=== PATIENT | female | born 1985 | race Caucasian/White ===

== ENCOUNTER 2018-08-13 11:22 | Emergency (ER) | payer OTHER, SELFPAY ==
[2018-08-13 11:40] VITALS: BP 108/74; PULSE 69; RESP 17; TEMP 37; O2SAT 100
--- NOTE | 2018-08-13 14:04 | ED.BACK ---
HPI - Back Pain/Injury <THIERRY Mccurdy - Last Filed: 08/13/18 16:10> General Chief Complaint: Back Pain/Injury Stated Complaint: BACK PAIN 2 WEEKS Time Seen by Provider: 08/13/18 14:04 Source: patient Mode of arrival: ambulatory Limitations: no limitations History of Present Illness HPI Narrative: c/o pain in her tailbone area, and denies any injury/trauma MD Complaint: back pain Onset (ago): week(s) (2) Duration: constant Similar Symptoms Previously: No Location: sacrum Severity: moderate Quality: sharp Radiation: none Relieving factors: none Exacerbating factors: movement Context: unknown Associated symptoms: denies other symptoms Related Data Home Medications Medication Instructions Recorded Confirmed Fish Oil 1 cap PO DAILY 08/13/18 08/13/18 Probiotic 1 cap PO DAILY 08/13/18 08/13/18 wt-mg-frnz-FA-Ca carb-vit K 1 tab PO DAILY 08/13/18 08/13/18 [One-A-Day Womens Formula] Previous Rx's Medication Instructions Recorded tramadol [Ultram] 50 mg PO Q6H PRN #20 tab 08/13/18 Allergies Allergy/AdvReac Type Severity Reaction Status Date / Time No Known Drug Allergies Allergy Verified 08/13/18 11:40 Review of Systems <THIERRY Mccurdy - Last Filed: 08/13/18 16:10> Review of Systems All systems reviewed & are unremarkable except as noted in HPI and below Constitutional Denies chills, Denies fever(s), Denies lethargy and Denies weakness ENT Ears, Nose, Mouth, and Throat: Denies neck pain Cardiovascular Denies chest pain, Denies irregular heart rhythm, Denies lightheadedness, Denies palpitations, Denies dyspnea, Denies dyspnea on exertion and Denies orthopnea Respiratory Denies cough, Denies dyspnea, Denies dyspnea on exertion and Denies wheezing Gastrointestinal Gastrointestinal: Denies abdominal pain, Denies change in bowel habits, Denies diarrhea, Denies nausea and Denies vomiting Genitourinary Denies hematuria, Denies flank pain, Denies urinary incontinence and Denies urinary urgency Musculoskeletal Reports as per HPI, Denies abnormal gait, Reports back pain, Denies limited range of motion, Denies muscle cramps, Denies muscle weakness, Denies neck pain, Denies numbness, Denies radiating pain into limb and Denies tingling Neurologic Denies abnormal gait, Denies numbness, Denies tingling and Denies weakness Endocrine Denies palpitations Allergic/Immunologic Denies wheezing Exam <Alexa THIERRY Mansfield - Last Filed: 08/13/18 16:10> Initial Vital Signs Initial Vital Signs: Vital Signs Temperature 98.6 F 08/13/18 11:40 Pulse Rate 69 08/13/18 11:40 Respiratory Rate 17 08/13/18 11:40 Blood Pressure 108/74 08/13/18 11:40 Pulse Oximetry 100 08/13/18 11:40 Const General: cooperative, healthy appearing, comfortable, well developed and well groomed Nutritional Appearance: average body habitus Orientation: alert, awake and oriented x3 HENMT Head: normal to inspection and normocephalic Ears: hearing grossly normal bilaterally, external ears normal, TM's normal bilaterally and mastoids normal Nose: external nose normal and nares normal Face and sinus: normal facial exam, sinuses nontender and face symmetric Mouth: oral mucosae normal, lip normal, tongue normal, oropharynx normal and moist mucous membranes Teeth and gingiva: dentition normal and gingiva normal Throat: posterior oropharynx normal, tonsils normal and uvula midline Eyes General: appearance normal, both eyes and all related structures Visual Spencer: normal visual spencer by confrontation Eyelids: eyelids normal Conjunctivae: conjunctivae normal Sclera: sclerae normal Pupils: PERRL EOM: EOM intact bilaterally Neck Neck: normal visual inspection, full ROM, no meningeal signs, trachea midline, supple and No lymphadenopathy Chest Chest: normal inspection of the chest Resp Effort & Inspection: normal respiratory effort and able to speak in complete sentences Auscultation: clear to auscultation bilaterally Cardio Rate: regular rate Rhythm: regular rhythm Heart Sounds: S1 normal and S2 normal Back/Spine/Pelvis Back: normal to inspection, No back tenderness, No CVA tenderness and No sacral edema Cervical Spine: cervical ROM normal and No pain with cervical ROM Thoracic/Lumbar Spine: thoraco-lumbar ROM normal and No thoraco-lumbar ROM limited Sacroiliac Joints: nontender Sacrum: no swelling and no tenderness Coccyx: no swelling and no tenderness Skin General: no rashes or lesions noted, elasticity normal, turgor normal and dry skin Neuro General: alert, awake, oriented x3 and meningeal signs present Cognition: normal cognition Speech: speech normal Gait: normal gait Motor: muscle tone normal throughout Sensory Exam: no sensory deficits noted Extrem General: normal to inspection and full ROM Psych Appearance: grossly normal and well kempt Mental Status: mental status grossly normal Speech and Movement: speech and movement normal Mood: congruent mood Affect: normal affect Attitude: cooperative Thought Process: normal Thought Content: normal Judgment: judgment good <Salena Nicolas DO - Last Filed: 08/14/18 20:44> Initial Vital Signs Initial Vital Signs: Vital Signs Temperature 98.6 F 08/13/18 11:40 Pulse Rate 69 08/13/18 11:40 Respiratory Rate 17 08/13/18 11:40 Blood Pressure 108/74 08/13/18 11:40 Pulse Oximetry 100 08/13/18 11:40 Course <THIERRY Mccurdy - Last Filed: 08/13/18 16:10> Course Narrative: results and dc discussed Orders Ordered: Discontinued Medications Ketorolac Tromethamine (Toradol) 60 mg IM NOW ONE Stop: 08/13/18 14:13 Last Admin: 08/13/18 14:27 Dose: 60 mg Vital Signs - 8 hr 08/13/18 11:40 08/13/18 14:18 08/13/18 15:38 Temperature 98.6 F Pulse Rate 69 74 81 Respiratory Rate 17 16 12 Blood Pressure 108/74 Blood Pressure [Right Arm] 112/63 114/72 Pulse Oximetry 100 97 100 <Salena Nicolas DO - Last Filed: 08/14/18 20:44> Orders Ordered: Discontinued Medications Ketorolac Tromethamine (Toradol) 60 mg IM NOW ONE Stop: 08/13/18 14:13 Last Admin: 08/13/18 14:27 Dose: 60 mg Vital Signs - 8 hr 08/13/18 11:40 08/13/18 14:18 08/13/18 15:38 Temperature 98.6 F Pulse Rate 69 74 81 Respiratory Rate 17 16 12 Blood Pressure 108/74 Blood Pressure [Right Arm] 112/63 114/72 Pulse Oximetry 100 97 100 MDM - Back Pain/Injury <THIERRY Mccurdy - Last Filed: 08/13/18 16:10> Differential Diagnosis Differential diagnosis: Likely lumbar radiculopathy, sciatica, strain of lumbar region, renal colic, pyelonephritis and discitis Lab Data Point of Care Testing Test Results Negative Urine Dip Bedside Urine Glucose Negative Bedside Urine Bilirubin - Negative Bedside Urine Ketone - Negative Urine Specific [place] 1.020 Bedside Urine Occult Blood - Negative Bedside Urine pH 6.0 Bedside Urine Protein - Negative Bedside Urine Urobilinogen - Negative Bedside Urine Nitrite - Negative Bedside Urine Leukocytes - Negative Esterase Imaging Data xr sacrum: Radiologist's impression: [address] [address] XRay Report Signed Patient: JIHAN PHELPS MMR#: [id number] : 1985Acct:[id number] Age/Sex: 33 / FDate of Service: 08/13/18 Loc: ED Accession Number: [id number] Procedure: XR sacrum coccyx min 2V Ordering Provider: Alexa Mansfield PROCEDURE: XR SACRUM COCCYX MIN 2V INDICATIONS: pain TECHNIQUE: 3 views of the sacrum and coccyx acquired. COMPARISON: None. FINDINGS: Bones: No fractures or dislocations. No suspicious bony lesions. Soft tissues: Visualized bowel gas pattern is normal. No suspicious soft tissue densities. IMPRESSION: No gross acute sacral or coccygeal fracture. Dictated by: Suraj Nunez M.D. on 08/13/2018 at 14:38 Approved by: Suraj Nunez M.D. on 08/13/2018 at 14:38 <Salena Nicolas DO - Last Filed: 08/14/18 20:44> Lab Data Point of Care Testing Test Results Negative Urine Dip Bedside Urine Glucose Negative Bedside Urine Bilirubin - Negative Bedside Urine Ketone - Negative Urine Specific [place] 1.020 Bedside Urine Occult Blood - Negative Bedside Urine pH 6.0 Bedside Urine Protein - Negative Bedside Urine Urobilinogen - Negative Bedside Urine Nitrite - Negative Bedside Urine Leukocytes - Negative Esterase Discharge Plan Departure Patient Disposition: Home Clinical Impression: Sacral back pain Discharge Date/Time: 08/13/18 15:49 Interventions: ED Discharge Assessment Last Done: 08/13/18 15:49 Instructions: DI for Low Back Pain Prescriptions: New tramadol [Ultram] 50 mg tablet 50 mg PO Q6H PRN (Reason: pain) Qty: 20 RF: 0 No Action kk-dm-uyrk-FA-Ca carb-vit K [One-A-Day Womens Formula] 18 mg iron-400 mcg-500 mg Tablet 1 tab PO DAILY RF: 0 Fish Oil 1 cap PO DAILY RF: 0 Probiotic 1 cap PO DAILY RF: 0 Referrals: Bety Robledo [Primary Care Provider] - (in approx 5 days as needed) <Salena Nicolas DO - Last Filed: 08/14/18 20:44> Cosign ED Attending Cosignature Attestation: I was immediately available in the department for consultation. This documentation has been reviewed and I agree with assessment and plan. Supervised by Salena Nicolas DO
--- NOTE | 2018-08-13 14:12 | DI.RAD.S_ITS ---
PROCEDURE: XR SACRUM COCCYX MIN 2V INDICATIONS: pain TECHNIQUE: 3 views of the sacrum and coccyx acquired. COMPARISON: None. FINDINGS: Bones: No fractures or dislocations. No suspicious bony lesions. Soft tissues: Visualized bowel gas pattern is normal. No suspicious soft tissue densities. IMPRESSION: No gross acute sacral or coccygeal fracture. Dictated by: Suraj Nunez M.D. on 08/13/2018 at 14:38 Approved by: Suraj Nunez M.D. on 08/13/2018 at 14:38
[2018-08-13 14:18] VITALS: BP 112/63; PULSE 74; RESP 16; O2SAT 97
[2018-08-13] MEDS: KETOROLAC 60 MG/2 ML VIAL IM (14:27)
--- NOTE | 2018-08-13 15:25 | ED_ITS ---
HPI - Back Pain/Injury <THIERRY Mccurdy - Last Filed: 08/13/18 16:10> General Chief Complaint: Back Pain/Injury Stated Complaint: BACK PAIN 2 WEEKS Time Seen by Provider: 08/13/18 14:04 Source: patient Mode of arrival: ambulatory Limitations: no limitations History of Present Illness HPI Narrative: c/o pain in her tailbone area, and denies any injury/trauma MD Complaint: back pain Onset (ago): week(s) (2) Duration: constant Similar Symptoms Previously: No Location: sacrum Severity: moderate Quality: sharp Radiation: none Relieving factors: none Exacerbating factors: movement Context: unknown Associated symptoms: denies other symptoms Related Data Home Medications Medication Instructions Recorded Confirmed Fish Oil 1 cap PO DAILY 08/13/18 08/13/18 Probiotic 1 cap PO DAILY 08/13/18 08/13/18 er-tk-isih-FA-Ca carb-vit K 1 tab PO DAILY 08/13/18 08/13/18 [One-A-Day Womens Formula] Previous Rx's Medication Instructions Recorded tramadol [Ultram] 50 mg PO Q6H PRN #20 tab 08/13/18 Allergies Allergy/AdvReac Type Severity Reaction Status Date / Time No Known Drug Allergies Allergy Verified 08/13/18 11:40 Review of Systems <THIERRY Mccurdy - Last Filed: 08/13/18 16:10> Review of Systems All systems reviewed & are unremarkable except as noted in HPI and below Constitutional Denies chills, Denies fever(s), Denies lethargy and Denies weakness ENT Ears, Nose, Mouth, and Throat: Denies neck pain Cardiovascular Denies chest pain, Denies irregular heart rhythm, Denies lightheadedness, Denies palpitations, Denies dyspnea, Denies dyspnea on exertion and Denies orthopnea Respiratory Denies cough, Denies dyspnea, Denies dyspnea on exertion and Denies wheezing Gastrointestinal Gastrointestinal: Denies abdominal pain, Denies change in bowel habits, Denies diarrhea, Denies nausea and Denies vomiting Genitourinary Denies hematuria, Denies flank pain, Denies urinary incontinence and Denies urinary urgency Musculoskeletal Reports as per HPI, Denies abnormal gait, Reports back pain, Denies limited range of motion, Denies muscle cramps, Denies muscle weakness, Denies neck pain , Denies numbness, Denies radiating pain into limb and Denies tingling Neurologic Denies abnormal gait, Denies numbness, Denies tingling and Denies weakness Endocrine Denies palpitations Allergic/Immunologic Denies wheezing Exam <Alexa THIERRY Mansfield - Last Filed: 08/13/18 16:10> Initial Vital Signs Initial Vital Signs: Vital Signs Temperature 98.6 F 08/13/18 11:40 Pulse Rate 69 08/13/18 11:40 Respiratory Rate 17 08/13/18 11:40 Blood Pressure 108/74 08/13/18 11:40 Pulse Oximetry 100 08/13/18 11:40 Const General: cooperative, healthy appearing, comfortable, well developed and well groomed Nutritional Appearance: average body habitus Orientation: alert, awake and oriented x3 HENMT Head: normal to inspection and normocephalic Ears: hearing grossly normal bilaterally, external ears normal, TM's normal bilaterally and mastoids normal Nose: external nose normal and nares normal Face and sinus: normal facial exam, sinuses nontender and face symmetric Mouth: oral mucosae normal, lip normal, tongue normal, oropharynx normal and moist mucous membranes Teeth and gingiva: dentition normal and gingiva normal Throat: posterior oropharynx normal, tonsils normal and uvula midline Eyes General: appearance normal, both eyes and all related structures Visual Spencer: normal visual spencer by confrontation Eyelids: eyelids normal Conjunctivae: conjunctivae normal Sclera: sclerae normal Pupils: PERRL EOM: EOM intact bilaterally Neck Neck: normal visual inspection, full ROM, no meningeal signs, trachea midline, supple and No lymphadenopathy Chest Chest: normal inspection of the chest Resp Effort & Inspection: normal respiratory effort and able to speak in complete sentences Auscultation: clear to auscultation bilaterally Cardio Rate: regular rate Rhythm: regular rhythm Heart Sounds: S1 normal and S2 normal Back/Spine/Pelvis Back: normal to inspection, No back tenderness, No CVA tenderness and No sacral edema Cervical Spine: cervical ROM normal and No pain with cervical ROM Thoracic/Lumbar Spine: thoraco-lumbar ROM normal and No thoraco-lumbar ROM limited Sacroiliac Joints: nontender Sacrum: no swelling and no tenderness Coccyx: no swelling and no tenderness Skin General: no rashes or lesions noted, elasticity normal, turgor normal and dry skin Neuro General: alert, awake, oriented x3 and meningeal signs present Cognition: normal cognition Speech: speech normal Gait: normal gait Motor: muscle tone normal throughout Sensory Exam: no sensory deficits noted Extrem General: normal to inspection and full ROM Psych Appearance: grossly normal and well kempt Mental Status: mental status grossly normal Speech and Movement: speech and movement normal Mood: congruent mood Affect: normal affect Attitude: cooperative Thought Process: normal Thought Content: normal Judgment: judgment good <Salena Nicolas DO - Last Filed: 08/14/18 20:44> Initial Vital Signs Initial Vital Signs: Vital Signs Temperature 98.6 F 08/13/18 11:40 Pulse Rate 69 08/13/18 11:40 Respiratory Rate 17 08/13/18 11:40 Blood Pressure 108/74 08/13/18 11:40 Pulse Oximetry 100 08/13/18 11:40 Course <THIERRY Mccurdy - Last Filed: 08/13/18 16:10> Course Narrative: results and dc discussed Orders Ordered: Discontinued Medications Ketorolac Tromethamine (Toradol) 60 mg IM NOW ONE Stop: 08/13/18 14:13 Last Admin: 08/13/18 14:27 Dose: 60 mg Vital Signs - 8 hr 08/13/18 11:40 08/13/18 14:18 08/13/18 15:38 Temperature 98.6 F Pulse Rate 69 74 81 Respiratory Rate 17 16 12 Blood Pressure 108/74 Blood Pressure [Right Arm] 112/63 114/72 Pulse Oximetry 100 97 100 <Salena Nicolas DO - Last Filed: 08/14/18 20:44> Orders Ordered: Discontinued Medications Ketorolac Tromethamine (Toradol) 60 mg IM NOW ONE Stop: 08/13/18 14:13 Last Admin: 08/13/18 14:27 Dose: 60 mg Vital Signs - 8 hr 08/13/18 11:40 08/13/18 14:18 08/13/18 15:38 Temperature 98.6 F Pulse Rate 69 74 81 Respiratory Rate 17 16 12 Blood Pressure 108/74 Blood Pressure [Right Arm] 112/63 114/72 Pulse Oximetry 100 97 100 MDM - Back Pain/Injury <THEIRRY Mccurdy - Last Filed: 08/13/18 16:10> Differential Diagnosis Differential diagnosis: Likely lumbar radiculopathy, sciatica, strain of lumbar region, renal colic, pyelonephritis and discitis Lab Data Point of Care Testing Test Results Negative Urine Dip Bedside Urine Glucose Negative Bedside Urine Bilirubin - Negative Bedside Urine Ketone - Negative Urine Specific [place] 1.020 Bedside Urine Occult Blood - Negative Bedside Urine pH 6.0 Bedside Urine Protein - Negative Bedside Urine Urobilinogen - Negative Bedside Urine Nitrite - Negative Bedside Urine Leukocytes - Negative Esterase Imaging Data xr sacrum: Radiologist's impression: [address] [address] XRay Report Signed Patient: JIHAN PHELPS MMR#: [id number] : 1985Acct:[id number] Age/Sex: 33 / FDate of Service: 08/13/18 Loc: ED Accession Number: [id number] Procedure: XR sacrum coccyx min 2V Ordering Provider: Alexa Mansfield PROCEDURE: XR SACRUM COCCYX MIN 2V INDICATIONS: pain TECHNIQUE: 3 views of the sacrum and coccyx acquired. COMPARISON: None. FINDINGS: Bones: No fractures or dislocations. No suspicious bony lesions. Soft tissues: Visualized bowel gas pattern is normal. No suspicious soft tissue densities. IMPRESSION: No gross acute sacral or coccygeal fracture. Dictated by: Suraj Nunez M.D. on 08/13/2018 at 14:38 Approved by: Suraj Nunez M.D. on 08/13/2018 at 14:38 <Salena Nicolas DO - Last Filed: 08/14/18 20:44> Lab Data Point of Care Testing Test Results Negative Urine Dip Bedside Urine Glucose Negative Bedside Urine Bilirubin - Negative Bedside Urine Ketone - Negative Urine Specific [place] 1.020 Bedside Urine Occult Blood - Negative Bedside Urine pH 6.0 Bedside Urine Protein - Negative Bedside Urine Urobilinogen - Negative Bedside Urine Nitrite - Negative Bedside Urine Leukocytes - Negative Esterase Discharge Plan Departure Patient Disposition: Home Clinical Impression: Sacral back pain Discharge Date/Time: 08/13/18 15:49 Interventions: ED Discharge Assessment Last Done: 08/13/18 15:49 Instructions: DI for Low Back Pain Prescriptions: New tramadol [Ultram] 50 mg tablet 50 mg PO Q6H PRN (Reason: pain) Qty: 20 RF: 0 No Action lv-um-iinl-FA-Ca carb-vit K [One-A-Day Womens Formula] 18 mg iron-400 mcg-500 mg Tablet 1 tab PO DAILY RF: 0 Fish Oil 1 cap PO DAILY RF: 0 Probiotic 1 cap PO DAILY RF: 0 Referrals: Bety Robledo [Primary Care Provider] - (in approx 5 days as needed) <Salena Nicolas DO - Last Filed: 08/14/18 20:44> Cosign ED Attending Cosignature Attestation: I was immediately available in the department for consultation. This documentation has been reviewed and I agree with assessment and plan. Supervised by Salena Nicolas DO
[2018-08-13 15:38] VITALS: BP 114/72; PULSE 81; RESP 12; O2SAT 100
== END 2018-08-13 15:49 | disposition home or self-care (01) ==
PROVIDERS: Emergency Provider Nurse Practitioner; PCP Nurse Practitioner
DX: M53.3 Sacrococcygeal disorders, not elsewhere classified (principal)
CPT/HCPCS: 72220; 81003; 81025; 96372; 99282; 99284; J1885

== ENCOUNTER 2018-09-27 16:12 | Emergency (ER) | payer OTHER, SELFPAY ==
[2018-09-27 16:15] VITALS: BP 118/80; PULSE 85; RESP 18; TEMP 36.6; O2SAT 100; BMI 28.3
--- NOTE | 2018-09-27 17:00 | ED.FEMALEGU ---
HPI - Female Genitourinary General Chief complaint: Urogenital-Female Stated complaint: thinks she has a UTI Time Seen by Provider: 09/27/18 16:58 Source: patient Mode of arrival: ambulatory Limitations: no limitations History of Present Illness HPI Narrative: 33-year-old female comes to the ER with frequency dysuria and urgency. Fevers, no abdominal or flank pain. Patient has had UTIs in the past she denies any resistance. Patient has not had any other symptoms currently. She has taken some azo [id number]. Related Data Home Medications Medication Instructions Recorded Confirmed Fish Oil 1 cap PO DAILY 08/13/18 09/27/18 Probiotic 1 cap PO DAILY 08/13/18 08/13/18 mb-oe-mets-FA-Ca carb-vit K 1 tab PO DAILY 08/13/18 09/27/18 [One-A-Day Womens Formula] Previous Rx's Medication Instructions Recorded tramadol [Ultram] 50 mg PO Q6H PRN #20 tab 08/13/18 nitrofurantoin monohyd/m-cryst 100 mg PO Q12H #6 cap 09/27/18 [Macrobid] Allergies Allergy/AdvReac Type Severity Reaction Status Date / Time No Known Drug Allergies Allergy Verified 09/27/18 16:18 Review of Systems Review of Systems All systems reviewed & are unremarkable except as noted in HPI and below Constitutional Denies chills and Denies fever(s) Gastrointestinal Gastrointestinal: Denies abdominal pain, Denies change in bowel habits, Denies diarrhea, Reports nausea (very mild) and Denies vomiting Genitourinary Reports as per HPI, Denies hematuria, Reports urinary frequency, Reports dysuria, Denies flank pain, Denies urinary incontinence and Reports urinary urgency [facility] Social History Smoking Status: Never smoker Exam Narrative Exam Narrative: GENERAL: Alert and oriented x three, well-nourished, well-appearing female in no mild distress. HEENT: Head normocephalic, atraumatic, EOMI, pupils reactive, face symmetric, moist mucous membranes NECK: Supple, full range of motion CARDIOVASCULAR: Regular rate and rhythm without murmurs, rubs or gallops. RESPIRATORY: Breath sounds equal bilaterally, no wheezes rales or rhonchi. ABDOMEN: Soft, nontender. Normoactive bowel sounds all 4 quadrants. No guarding or rebound, rigidity, no mass : No CVA tenderness EXTREMITIES: Normal range of motion, no clubbing or edema. Neurovascularly intact NEUROLOGICAL: Cranial nerves II through XII grossly intact. Moving all extremities SKIN: Warm, dry, no petechiae, no rashes or lesions. Initial Vital Signs Initial Vital Signs: Vital Signs Temperature 97.9 F 09/27/18 16:15 Pulse Rate 85 09/27/18 16:15 Respiratory Rate 18 09/27/18 16:15 Blood Pressure 118/80 09/27/18 16:15 Pulse Oximetry 100 09/27/18 16:15 Course Orders Ordered: ED Orders 09/27/18 16:52 Urine Culture Stat Urine Microscopic Stat Vital Signs - 8 hr 09/27/18 16:15 09/27/18 17:31 Temperature 97.9 F Pulse Rate 85 82 Respiratory Rate 18 18 Blood Pressure 118/80 Pulse Oximetry 100 100 MDM - Female Genitourinary Lab Data Attestation: I reviewed the patient's lab results. Lab Results 09/27/18 Range/Units 16:52 Urine RBC 5-10/hpf H (0-5/HPF) Urine WBC 10-30/hpf H (0-5/HPF) Ur Squamous Epith Cells 0-1 /hpf Urine Bacteria Occasional (0-1) (None) Ur Culture Indicated? Specimen cultured Micro UA Comment Not Reportable Point of Care Testing Test Results Negative Urine Dip Bedside Urine Glucose Negative Bedside Urine Bilirubin - Negative Bedside Urine Ketone - Negative Urine Specific [place] 1.010 Bedside Urine Occult Blood + Bedside Urine pH 8.5 Bedside Urine Protein + 30 Bedside Urine Urobilinogen - Negative Bedside Urine Nitrite - Negative Bedside Urine Leukocytes ++ 125 Esterase Discharge Plan Departure Patient Disposition: Home Clinical Impression: UTI (urinary tract infection) Discharge Date/Time: 09/27/18 17:32 Interventions: ED Discharge Assessment Last Done: 09/27/18 17:31 Instructions: DI for Urinary Tract Infection (UTI) Activity Restrictions/Additional Instructions: Follow-up with her primary care physician in the next 5-7 days if symptoms are not completely resolved. Take antibiotics until they are completely gone. Take azo or pyridium you may take 200 mg every 8 hr as needed for bladder spasm/irritation. Return appearing having fevers greater than 100.4, new back, flank or abdominal pain, persistent vomiting, worsening symptoms or other new or concerning symptoms. Prescriptions: New nitrofurantoin monohyd/m-cryst [Macrobid] 100 mg capsule 100 mg PO Q12H Qty: 6 RF: 0 No Action bs-bk-jraj-FA-Ca carb-vit K [One-A-Day Womens Formula] 18 mg iron-400 mcg-500 mg Tablet 1 tab PO DAILY RF: 0 Fish Oil 1 cap PO DAILY RF: 0 Probiotic 1 cap PO DAILY RF: 0 tramadol [Ultram] 50 mg tablet 50 mg PO Q6H PRN (Reason: pain) Qty: 20 RF: 0
[2018-09-27 17:09] LABS: Bacteria Urine Occasional (0-1); Culture Indicated Urine Specimen Cultured; RBC Urine 5-10/HPF (0-5/HPF); Squamous Epithelial Cell Urine 0-1 /HPF; WBC Urine 10-30/HPF (0-5/HPF)
[2018-09-27 17:31] VITALS: PULSE 82; RESP 18; O2SAT 100
== END 2018-09-27 17:32 | disposition home or self-care (01) ==
PROVIDERS: Nurse Practitioner Family; Emergency Provider Emergency Medicine; PCP Nurse Practitioner
DX: N39.0 Urinary tract infection, site not specified (principal)
CPT/HCPCS: 81003; 81015; 81025; 87077; 87086; 87186; 99283

== ENCOUNTER 2018-11-30 20:38 | Emergency (ER) | payer OTHER, SELFPAY ==
[2018-11-30 20:44] VITALS: BP 112/66; PULSE 96; RESP 20; TEMP 37; O2SAT 100; BMI 29.2
--- NOTE | 2018-11-30 21:11 | DI.US.S_ITS ---
PROCEDURE: US OB <= 14 WEEKS FETUS INDICATIONS: AT 8 WEEKS, PAIN AND BLEEDING OUTSIDE/PRIOR DATING DATA: Last menstrual period (LMP): 09/30/18. LMP-based estimated date of delivery (JONATAN): 07/07/19. First dating scan (date and location): 11/30/18. Estimated date of delivery (JONATAN) from first dating scan: n/a . TECHNIQUE: Real-time scanning was performed of the fetus and maternal pelvic organs, with image documentation. Endovaginal scanning was also performed to better visualize the fetus and maternal ovaries. COMPARISON: None. FINDINGS: There is no visualization of intrauterine gestational sac, pole or heart tones. There is significant echogenic appearance within the endometrium and endocervical canal. Ovaries demonstrate 17 mm focus of hypoechogenicity adjacent to the left ovary. Trace left adnexal fluid is present.. Limited images through the kidneys demonstrate no hydronephrosis. IMPRESSION: 1. No visualized intrauterine gestational sac, pole or heart tones. Areas of increased echogenicity are present within the endometrium and endocervical canal. Findings are suggestive of previous . Recommend interval followup imaging and review of beta hCG levels to exclude presence of underlying ectopic and retained products of conception. Dictated by: Cathryn Hua M.D. on 12/01/2018 at 9:18 Approved by: Cathryn Hua M.D. on 12/01/2018 at 9:22
--- NOTE | 2018-11-30 21:18 | PC.NURSE ---
Pt just ambulated to bathroom. Reports passing something about golf ball size in bathroom. Ended up flushing toilet with no further visualization. Pt report's pain has decreased to minimal at this time.
[2018-11-30 21:45] LABS: Add Manual Diff / Slide Review NO; Basophils Absolute Auto 0 /uL (0-100); Basophils Percent Auto 0.6 % (0-2); Eosinophils Absolute Auto 200 /uL (0-450); Eosinophils Percent Auto 2.8 % (2-4); Hematocrit 39.4 % (36-46); Hemoglobin 13.1 g/dL (12.0-16.0); Lymphocytes Absolute Auto 2000 /uL (1100-4500); Lymphocytes Percent Auto 26.6 % (25-40); Mean Corpuscular HGB Conc 33.3 % (30-36); Mean Corpuscular Hemoglobin 29.6 PG (26-34); Mean Corpuscular Volume 88.9 fL (80-100); Monocytes Absolute Auto 600 /uL (0-900); Monocytes Percent Auto 8.5 % (3-14); Neutrophils Absolute Auto 4600 /uL (1500-7000); Neutrophils Percent Auto 61.5 % (50-75); Platelet Count 217 X10^3/uL (150-400); Red Blood Cell Count 4.43 X10^6/uL (4.0-5.2); Red Cell Distribution Width 12.6 % (11.6-14.8); White Blood Cell Count 7.5 X10^3/uL (4.5-11.0)
[2018-11-30 21:57] LABS: Alanine Aminotransferase 42 IU/L (9-52); Albumin 4.5 g/dL (3.5-5.0); Albumin Globulin Ratio 1.6 (1.0-2.8); Alkaline Phosphatase 65 U/L (38-126); Aspartate Aminotransferase 26 IU/L (14-36); Bilirubin Total 0.3 mg/dL (0.2-1.3); Blood Urea Nitrogen 15 mg/dL (7-17); Calcium 9.1 mg/dL (8.4-10.2); Carbon Dioxide 24 mmol/L (22-32); Chloride 103 mmol/L (98-107); Estimated Glomerular Filt Rate > 60.0 mL/min (>60); Globulin 2.9 g/dL (1.7-4.1); Glucose 92 mg/dL (70-100); HEMOLYSIS 18 (0-50); Potassium 3.9 mmol/L (3.4-5.1); Sodium 137 mmol/L (137-145); Total Protein 7.4 g/dL (6.3-8.2)
[2018-11-30 21:59] LABS: Bacteria Urine None Seen
[2018-11-30 22:04] LABS: Appearance Urine UA TURBID; Bilirubin Urine UA NEGATIVE (NEGATIVE); Color Urine UA RED; Glucose Urine UA NEGATIVE (Negative); Ketones Urine UA TRACE (NEGATIVE); Leukocyte Esterase Urine UA NEGATIVE (NEGATIVE); Nitrite Urine UA NEGATIVE (Negative); Occult Blood Urine UA 3+ (Negative); Protein Urine UA 3+ (Negative); Specific Gravity Urine UA >=1.030 (1.000-1.035); Urobilinogen Urine UA 0.2 E.U./dL (0.2)
[2018-11-30 22:06] LABS: Calcium Oxalate Crystals Urine Occasional; Culture Indicated Urine Cult Not Indicated; RBC Urine >100/HPF (0-5/HPF); Squamous Epithelial Cell Urine 0-1 /HPF; WBC Urine 0-1/HPF (0-5/HPF)
[2018-11-30 22:37] VITALS: BP 111/66; PULSE 74; RESP 12; O2SAT 100
--- NOTE | 2018-12-01 05:06 | ED.PREGNANCY ---
HPI - General Chief complaint: Vaginal Bleeding Stated complaint: spotting Time Seen by Provider: 11/30/18 21:09 Source: patient Mode of arrival: ambulatory Limitations: no limitations History of Present Illness HPI Narrative: 33-year-old female nonsmoker otherwise healthy at 8 weeks. She has had some mild vaginal spotting for the past 4 weeks or so and her primary care office has been following her with serial HCGs. Today her bleeding became much more intense and heavy and she presents to us for further evaluation. She had an episode of dizziness but it is not ongoing. She denies chest pain or shortness of breath. She denies fever or chills. She has had no dysuria, frequency or urgency. She has yet to have an ultrasound confirming intrauterine MD Complaint: vaginal bleeding Onset (ago): minute(s) Pain Consistency: now resolved Location: pelvis Severity: mild Quality: Aching Relieving factors: none Exacerbating factors: none Vaginal discharge: none Vaginal bleeding: heavy Patient : Yes Number of Weeks : 8 OB History - Current : no complications OB History - Previous Pregnancies: no complications care: followed by OB Related Data : 1 Para: 0 Total number of abortions (spontaneous and elective): 0 Home Medications Medication Instructions Recorded Confirmed Fish Oil 1 cap PO DAILY 08/13/18 09/27/18 Probiotic 1 cap PO DAILY 08/13/18 08/13/18 ij-[id number]-FA-Ca carb-vit K 1 tab PO DAILY 08/13/18 09/27/18 [One-A-Day Womens Formula] Previous Rx's Medication Instructions Recorded tramadol [Ultram] 50 mg PO Q6H PRN #20 tab 08/13/18 nitrofurantoin monohyd/m-cryst 100 mg PO Q12H #6 cap 09/27/18 [Macrobid] Allergies Allergy/AdvReac Type Severity Reaction Status Date / Time No Known Drug Allergies Allergy Verified 11/30/18 20:44 Review of Systems Constitutional Denies chills, Denies fever(s), Denies lethargy and Reports weakness Eyes Denies change in vision, Denies eye discharge, Denies irritation and Denies loss of vision ENT Ears, Nose, Mouth, and Throat: Denies change in voice, Denies neck pain and Denies sore throat Cardiovascular Denies chest pain, Denies irregular heart rhythm, Denies lightheadedness, Denies palpitations, Denies dyspnea, Denies dyspnea on exertion and Denies orthopnea Respiratory Denies cough, Denies dyspnea, Denies dyspnea on exertion and Denies wheezing Gastrointestinal Gastrointestinal: Denies abdominal pain, Denies change in bowel habits, Denies diarrhea, Denies nausea and Denies vomiting Genitourinary Reports abnormal vaginal bleeding, Denies hematuria, Denies flank pain, Denies urinary incontinence and Denies urinary urgency Musculoskeletal Denies neck pain Integumentary/Breasts Denies pruritus, Denies erythema, Denies rash and Denies wounds Neurologic Denies confusion, Denies loss of vision and Reports weakness Psychiatric Denies anxiety, Denies confusion, Denies depression, Denies homicidal ideation and Denies suicidal ideation Endocrine Denies palpitations Hematologic/Lymphatic Denies easy bruising Allergic/Immunologic Denies wheezing PMFSH - Past Medical History Medical history: Reports no medical history Surgical history: Reports no surgical history SECURITY SUPPORT ANALYST history: Reports No SECURITY SUPPORT ANALYST History Patient : Yes Psychiatric history: Reports no psych history Family history: Reports no significant family history Exam Narrative Exam Narrative: GENERAL: This is a well-nourished, well-developed patient, in mild distress. HEAD: Atraumatic. Normocephalic. No temporal or scalp tenderness. EYES: Pupils equal round and reactive. Extraocular motions intact. No scleral icterus. No injection or drainage. ENT: Nose without bleeding, purulent drainage or septal hematoma. Throat without erythema, tonsillar hypertrophy or exudate. Uvula midline. Airway patent. NECK: Trachea midline. No JVD or lymphadenopathy. Supple, nontender, no meningeal signs. CARDIOVASCULAR: Regular rate and rhythm without murmurs, gallops, or rubs. RESPIRATORY: Clear to auscultation. Breath sounds equal bilaterally. No wheezes, rales, or rhonchi. GASTROINTESTINAL: Abdomen soft, mild suprapubic tenderness, nondistended. No hepato-splenomegaly, or palpable masses. No guarding. EXTREMITIES: No clubbing, cyanosis, or edema. No joint tenderness, effusion, or edema noted. BACK: Nontender without deformity or crepitance. No flank tenderness. NEURO: AOx3. SKIN: No rash or erythema. Initial Vital Signs Initial Vital Signs: Vital Signs Temperature 98.6 F 11/30/18 20:44 Pulse Rate 96 H 11/30/18 20:44 Respiratory Rate 20 11/30/18 20:44 Blood Pressure 112/66 11/30/18 20:44 Pulse Oximetry 100 11/30/18 20:44 Procedures Number of Weeks : 8 Course Orders Ordered: ED Orders 11/30/18 21:11 US OB <= 14 weeks fetus Stat 11/30/18 21:35 ABO RH Type Stat Complete Blood Count AUTO DIFF Stat Comprehensive Metabolic Panel Stat HCG Quantitative Stat 11/30/18 21:45 Urinalysis and Microscopic Stat Consultations Consultation #1: Discussion of case with on-call Ob whom recommends close follow-up on Sunday for repeat HCG and return precautions to include bleeding through more than 1 pad per hour for multiple hours or other bothersome symptoms Vital Signs - 8 hr 11/30/18 22:37 Pulse Rate 74 Respiratory Rate 12 Blood Pressure [Left Arm] 111/66 Pulse Oximetry 100 MDM - OB/Uterine Contractions Medical Records Attestation: I reviewed the patient's medical records. Lab Data Attestation: I reviewed the patient's lab results. Result diagrams: 11/30/18 21:35 11/30/18 21:35 Lab Results 11/30/18 11/30/18 11/30/18 Range/Units 21:35 21:35 21:35 WBC 7.5 (4.5-11.0) X10^3/uL RBC 4.43 (4.0-5.2) X10^6/uL Hgb 13.1 (12.0-16.0) g/dL Hct 39.4 (36-46) % MCV 88.9 (80-100) fL MCH 29.6 (26-34) PG MCHC 33.3 (30-36) % RDW 12.6 (11.6-14.8) % Plt Count 217 (150-400) X10^3/uL Neut % (Auto) 61.5 (50-75) % Lymph % (Auto) 26.6 (25-40) % Riley % (Auto) 8.5 (3-14) % Eos % (Auto) 2.8 (2-4) % Baso % (Auto) 0.6 (0-2) % Neut # (Auto) 4600 (5804-3438) /uL Lymph # (Auto) 2000 (9090-8932) /uL Riley # (Auto) 600 (0-900) /uL Eos # (Auto) 200 (0-450) /uL Baso # (Auto) 0 (0-100) /uL Sodium 137 (137-145) mmol/L Potassium 3.9 (3.4-5.1) mmol/L Chloride 103 (98-107) mmol/L Carbon Dioxide 24 (22-32) mmol/L BUN 15 (7-17) mg/dL Creatinine 0.60 (0.52-1.04) mg/dL Estimated GFR > 60.0 (>60) mL/min BUN/Creatinine Ratio 25.0 H (6-22) Glucose 92 (70-100) mg/dL Calcium 9.1 (8.4-10.2) mg/dL Total Bilirubin 0.3 (0.2-1.3) mg/dL AST 26 (14-36) IU/L ALT 42 (9-52) IU/L Alkaline Phosphatase 65 (38-126) U/L Total Protein 7.4 (6.3-8.2) g/dL Albumin 4.5 (3.5-5.0) g/dL Globulin 2.9 (1.7-4.1) g/dL Albumin/Globulin Ratio 1.6 (1.0-2.8) HCG, Quant mIU/mL Serum , Qual Cancelled Urine Color Urine Appearance Urine pH (4.5-8.0) Ur Specific Center (1.000-1.035) Urine Protein (Negative) Urine Glucose (UA) (Negative) g/dL Urine Ketones (NEGATIVE) Urine Occult Blood (Negative) Urine Nitrate (Negative) Urine Bilirubin (NEGATIVE) Urine Urobilinogen (0.2) E.U./dL Ur Leukocyte Esterase (NEGATIVE) Urine RBC (0-5/HPF) Urine WBC (0-5/HPF) Ur Squamous Epith Cells Calcium Oxalate Crystal (None) Urine Bacteria (None) Ur Culture Indicated? Blood Type 11/30/18 11/30/18 11/30/18 Range/Units 21:35 21:35 21:45 WBC (4.5-11.0) X10^3/uL RBC (4.0-5.2) X10^6/uL Hgb (12.0-16.0) g/dL Hct (36-46) % MCV (80-100) fL MCH (26-34) PG MCHC (30-36) % RDW (11.6-14.8) % Plt Count (150-400) X10^3/uL Neut % (Auto) (50-75) % Lymph % (Auto) (25-40) % Riley % (Auto) (3-14) % Eos % (Auto) (2-4) % Baso % (Auto) (0-2) % Neut # (Auto) (0474-3913) /uL Lymph # (Auto) (5804-2495) /uL Riley # (Auto) (0-900) /uL Eos # (Auto) (0-450) /uL Baso # (Auto) (0-100) /uL Sodium (137-145) mmol/L Potassium (3.4-5.1) mmol/L Chloride (98-107) mmol/L Carbon Dioxide (22-32) mmol/L BUN (7-17) mg/dL Creatinine (0.52-1.04) mg/dL Estimated GFR (>60) mL/min BUN/Creatinine Ratio (6-22) Glucose (70-100) mg/dL Calcium (8.4-10.2) mg/dL Total Bilirubin (0.2-1.3) mg/dL AST (14-36) IU/L ALT (9-52) IU/L Alkaline Phosphatase (38-126) U/L Total Protein (6.3-8.2) g/dL Albumin (3.5-5.0) g/dL Globulin (1.7-4.1) g/dL Albumin/Globulin Ratio (1.0-2.8) HCG, Quant 2597.0 mIU/mL Serum , Qual Urine Color Red Urine Appearance Turbid Urine pH 6.0 (4.5-8.0) Ur Specific Center >=1.030 H (1.000-1.035) Urine Protein 3+ H (Negative) Urine Glucose (UA) Negative (Negative) g/dL Urine Ketones Trace H (NEGATIVE) Urine Occult Blood 3+ H (Negative) Urine Nitrate Negative (Negative) Urine Bilirubin Negative (NEGATIVE) Urine Urobilinogen 0.2 (0.2) E.U./dL Ur Leukocyte Esterase Negative (NEGATIVE) Urine RBC >100/hpf H (0-5/HPF) Urine WBC 0-1/hpf (0-5/HPF) Ur Squamous Epith Cells 0-1 /hpf Calcium Oxalate Crystal Occasional H (None) Urine Bacteria None seen (None) Ur Culture Indicated? Cult not indicated Blood Type O Positive Point of Care Testing Test Results Positive MDM Narrative Medical decision making narrative: Patient has serum HCG over 1999 and has had increasing vaginal bleeding over the course of the day. She passed a large clot and questions whether not there was some tissue in the bathroom earlier but flushed it before recognizing we may be interested in seeing. Her ultrasound shows no intrauterine and though the suspicion is of missed we still cannot rule out ectopic hence the recommendation to repeat HCG to document its decline Patient and have had their questions answered to their apparent satisfaction and have understanding of return precautions and the ability to verbalize that understanding. Discharge Plan Departure Patient Disposition: Home Clinical Impression: Vaginal bleeding, Incomplete Discharge Date/Time: 11/30/18 23:09 Interventions: ED Discharge Assessment Last Done: 11/30/18 23:07 Instructions: DI for Miscarriage, DI for Vaginal Bleeding Activity Restrictions/Additional Instructions: *You have been diagnosed with [incomplete miscarriage ] *What to do: *Follow up with your primary care provider in 2-3 days, call for an appointment. Let them know you were seen in the Emergency Department and that we ask that you be seen in follow up *Return to ER if you should have any new, worsening or concerning symptoms, such as [ worsening bleeding, through 1 pad per hour or more more than 1 hr, fever, shaking chills or other bothersome symptoms] Prescriptions: No Action by-ew-afhl-FA-Ca carb-vit K [One-A-Day Womens Formula] 18 mg iron-400 mcg-500 mg Tablet 1 tab PO DAILY RF: 0 Fish Oil 1 cap PO DAILY RF: 0 Probiotic 1 cap PO DAILY RF: 0 tramadol [Ultram] 50 mg tablet 50 mg PO Q6H PRN (Reason: pain) Qty: 20 RF: 0 nitrofurantoin monohyd/m-cryst [Macrobid] 100 mg capsule 100 mg PO Q12H Qty: 6 RF: 0 Referrals: Bety Robledo [Primary Care Provider] -
== END 2018-11-30 23:09 | disposition home or self-care (01) ==
PROVIDERS: Emergency Provider Emergency Medicine; PCP Nurse Practitioner
DX: O03.4 Incomplete spontaneous abortion without complication (principal)
CPT/HCPCS: 36591; 76801; 80053; 81001; 81025; 84702; 85025; 86900; 86901; 99282; 99284

== ENCOUNTER 2022-12-15 18:21 | Emergency (ER) | payer OTHER, SELFPAY ==
[2022-12-15 19:03] VITALS: BP 136/78; PULSE 76; RESP 17; TEMP 37; O2SAT 100; BMI 29.2
--- NOTE | 2022-12-15 19:07 | DI.RAD.S_ITS ---
PROCEDURE: XR CHEST 1V INDICATIONS: chest pain TECHNIQUE: One view of the chest was acquired. COMPARISON: None. FINDINGS: Surgical changes and devices: None. Lungs and pleura: Lungs are clear. No pleural effusions or pneumothorax. Mediastinum: Mediastinal contours appear normal. Heart size is normal. Bones and chest wall: No suspicious bony lesions. Overlying soft tissues appear unremarkable. IMPRESSION: No evidence acute pulmonary process. Dictated by: Chris Rodriguez M.D. on 12/15/2022 at 19:37 Approved by: Chris Rodriguez M.D. on 12/15/2022 at 19:37
--- NOTE | 2022-12-15 19:08 | DI.US.S_ITS ---
PROCEDURE: US PERIPH VENOUS LOW EXTREM RT INDICATIONS: leg pain TECHNIQUE: Real-time imaging, as well as color and pulse Doppler interrogation, were performed of the lower extremity deep veins from the inguinal ligament to the popliteal fossa. COMPARISON: None. FINDINGS: The common femoral, femoral and popliteal veins are normally compressible, and free of intraluminal thrombus. Color and pulse Doppler demonstrate normal phasic intraluminal flow. There is normal augmentation response to distal compression maneuver. IMPRESSION: Negative right lower extremity duplex venous ultrasound for DVT. Dictated by: Chris Rodriguez M.D. on 12/15/2022 at 19:58 Approved by: Chris Rodriguez M.D. on 12/15/2022 at 19:59
[2022-12-15 19:28] LABS: Alanine Aminotransferase 34 IU/L (<35); Albumin 4.8 g/dL (3.5-5.0); Albumin Globulin Ratio 1.5 (1.0-2.8); Alkaline Phosphatase 70 U/L (38-126); Aspartate Aminotransferase 25 IU/L (14-36); Bilirubin Total 0.4 mg/dL (0.2-1.3); Blood Urea Nitrogen 12 mg/dL (7-17); Calcium 9.4 mg/dL (8.4-10.2); Carbon Dioxide 27 mmol/L (22-32); Chloride 104 mmol/L (98-107); Creatine Kinase 66 U/L (30-135); Estimated Glomerular Filt Rate > 60 mL/min (>60); Globulin 3.3 g/dL (1.7-4.1); Glucose 99 mg/dL (70-100); Lipase 54 U/L (23-300); Magnesium 2.2 mg/dL (1.6-2.3); Potassium 3.8 mmol/L (3.4-5.1); Sodium 141 mmol/L (137-145); Total Protein 8.1 g/dL (6.3-8.2)
[2022-12-15 19:33] LABS: D Dimer < 215 ng/ml (<500); PTT Partial Thromboplastin Tim 36 SECONDS (26-36)
[2022-12-15 19:34] LABS: HEMOLYSIS < 15 (0-50)
[2022-12-15 19:36] LABS: Add Manual Diff / Slide Review NO; Basophils Absolute Auto 0 /uL (0-100); Basophils Percent Auto 0.5 % (0-2); Eosinophils Absolute Auto 200 /uL (0-450); Eosinophils Percent Auto 3.2 % (2-4); Hematocrit 41.2 % (36-46); Hemoglobin 13.8 g/dL (12.0-16.0); Lymphocytes Absolute Auto 1300 /uL (1100-4500); Lymphocytes Percent Auto 21.7 % (25-40); Mean Corpuscular HGB Conc 33.6 % (30-36); Mean Corpuscular Hemoglobin 29.4 PG (26-34); Mean Corpuscular Volume 87.6 fL (80-100); Monocytes Absolute Auto 500 /uL (0-900); Monocytes Percent Auto 8.1 % (3-14); Neutrophils Absolute Auto 4100 /uL (1500-7000); Neutrophils Percent Auto 66.5 % (50-75); Platelet Count 208 X10^3/uL (150-400); Red Cell Distribution Width 13.1 % (11.6-14.8); White Blood Cell Count 6.2 X10^3/uL (4.5-11.0)
[2022-12-15 19:41] LABS: Troponin I < 0.012 ng/mL (0.01-0.034)
[2022-12-15 20:57] LABS: Creatine Kinase 64 U/L (30-135)
[2022-12-15 21:08] LABS: Troponin I < 0.012 ng/mL (0.01-0.034)
--- NOTE | 2022-12-15 21:58 | ED_ITS ---
HPI - Chest Pain General Chief Complaint: Chest Pain Stated Complaint: CHEST PAINS SOB legs ache jolty pains Time Seen by Provider: 12/15/22 19:14 Source: patient Mode of arrival: Ambulatory History of Present Illness HPI narrative: 37F nonsmoker presents with various symptoms over the past few days. Most notably is pain in her right calf that has been present for the past few days. She states that she just got back from the beach in [place] and noticed the pain while walking. She does not remember any specific injury but states she was quite active. She denies any thigh or hip pain. She denies numbness, tingling or weakness. Additionally, she has had episodes of symptoms that come together in clusters that start with palpitations and a racing heart along with shortness of breath some lightheadedness and blurring of vision. These episodes are unprovoked and relatively brief in nature. She denies any new medications or d ietary change. She is not having symptoms now. She is had no fever or chills. She denies nausea, vomiting or diarrhea. Denies any history of blood clot, known cancer Related Data Allergies Allergy/AdvReac Type Severity Reaction Status Date / Time lidocaine AdvReac Unconscious Verified 12/15/22 19:06 Review of Systems Review of Systems Narrative: GENERAL: Denies chills, fatigue, malaise, fever, sweats. HEENT: Denies sinus pain, ear pain, sore throat, difficulty swallowing, dizziness. RESPIRATORY: See HPI CARDIOVASCULAR: see HPI GASTROINTESTINAL: Denies nausea, vomiting, abdominal pain, diarrhea, constipation, melena. : Denies dysuria, frequency, incontinence, hematuria, urinary retention. MUSCULOSKELETAL: denies weakness, joint pain, or bony pain SKIN: Denies rash, skin lesions, or other NEUROLOGIC: Denies weakness, headache, numbness, change in speech, confusion, seizures, incoordination. PSYCHIATRIC: No concerning psychosocial issues. 12 point review of systems is negative except for those stated above Patient History Social History Smoking Status: Never smoker Smoking Status: Never smoker alcohol intake frequency: a few times a week Substance Use Type: does not use Exam Narrative Exam Narrative: GENERAL: [37] year old patient appears stated age. Well-developed patient, in mild distress. HEAD: Atraumatic. Normocephalic. EYES: Pupils equal round and reactive. Extraocular motions intact. No scleral icterus. No injection or drainage. ENT: Nose without bleeding, purulent drainage. Throat without erythema, tonsillar hypertrophy or exudate. Airway patent. NECK: Trachea midline. Non tender CARDIOVASCULAR: Regular rate and rhythm without murmurs, gallops, or rubs. RESPIRATORY: Clear to auscultation. Breath sounds equal bilaterally. No wheezes, rales, or rhonchi. GASTROINTESTINAL: Abdomen soft, non-tender, nondistended. EXTREMITIES: No edema or joint tenderness. Muscle wasting in right calf is chronic per patient, no swelling, erythema, warmth or lymphangitis noted BACK: Nontender without deformity or crepitance. No flank tenderness. NEURO: AOx3. SKIN: No rash or erythema of visible areas Initial Vital Signs Initial Vital Signs: Vital Signs Temperature 98.6 F 12/15/22 19:03 Pulse Rate 76 12/15/22 19:03 Respiratory Rate 17 12/15/22 19:03 Blood Pressure 136/78 12/15/22 19:03 Pulse Oximetry 100 12/15/22 19:03 Oxygen Delivery Method Room Air 12/15/22 19:03 Course Orders Ordered: ED Orders 12/15/22 19:07 XR chest 1V Stat EKG-12 Lead Stat 12/15/22 19:08 US periph venous low extrem rt Stat 12/15/22 19:09 Complete Blood Count AUTO DIFF Stat Comprehensive Metabolic Panel Stat DD [D Dimer] Stat Lipase Stat Magnesium Stat PTT Partial Thromboplastin Juan Alberto Stat Prothrombin Time INR Stat Troponin & CK Cardiac Panel Stat 12/15/22 20:25 cardiac panel [Troponin & CK Cardiac Panel] Stat Vital Signs Vital signs: Vital Signs - 8 hr 12/15/22 19:03 12/15/22 22:21 Temperature 98.6 F Pulse Rate 76 72 Respiratory Rate 17 18 Blood Pressure 136/78 115/61 Pulse Oximetry 100 98 Oxygen Delivery Method Room Air Room Air MDM - Chest Pain Lab Data 12/15/22 19:09 12/15/22 19:09 Labs: Lab Results 12/15/22 12/15/22 12/15/22 Range/Units 19:09 19:09 19:09 WBC 6.2 (4.5-11.0) X10^3/uL RBC 4.70 (4.0-5.2) X10^6/uL Hgb 13.8 (12.0-16.0) g/dL Hct 41.2 (36-46) % MCV 87.6 (80-100) fL MCH 29.4 (26-34) PG MCHC 33.6 (30-36) % RDW 13.1 (11.6-14.8) % Plt Count 208 (150-400) X10^3/uL Neut % (Auto) 66.5 (50-75) % Lymph % (Auto) 21.7 L (25-40) % Dubois % (Auto) 8.1 (3-14) % Eos % (Auto) 3.2 (2-4) % Baso % (Auto) 0.5 (0-2) % Neut # (Auto) 4100 (9904-7178) /uL Lymph # (Auto) 1300 (1547-5322) /uL Dubois # (Auto) 500 (0-900) /uL Eos # (Auto) 200 (0-450) /uL Baso # (Auto) 0 (0-100) /uL PT 12.0 (10.1-12.7) SECONDS INR 1.0 (0.9-1.3) APTT 36 (26-36) SECONDS D-Dimer < 215 (<500) ng/ml Sodium 141 (137-145) mmol/L Potassium 3.8 (3.4-5.1) mmol/L Chloride 104 (98-107) mmol/L Carbon Dioxide 27 (22-32) mmol/L BUN 12 (7-17) mg/dL Creatinine 0.63 (0.52-1.04) mg/dL Estimated GFR > 60 (>60) mL/min BUN/Creatinine Ratio 19.0 (6-22) Glucose 99 (70-100) mg/dL Calcium 9.4 (8.4-10.2) mg/dL Magnesium 2.2 (1.6-2.3) mg/dL Total Bilirubin 0.4 (0.2-1.3) mg/dL AST 25 (14-36) IU/L ALT 34 (<35) IU/L Alkaline Phosphatase 70 (38-126) U/L Total Creatine Kinase 66 (30-135) U/L CK-MB (CK-2) TNP CK-MB (CK-2) Rel Index TNP Troponin I < 0.012 (0.01-0.034) ng/mL Total Protein 8.1 (6.3-8.2) g/dL Albumin 4.8 (3.5-5.0) g/dL Globulin 3.3 (1.7-4.1) g/dL Albumin/Globulin Ratio 1.5 (1.0-2.8) Lipase 54 (23-300) U/L 12/15/22 Range/Units 20:25 WBC (4.5-11.0) X10^3/uL RBC (4.0-5.2) X10^6/uL Hgb (12.0-16.0) g/dL Hct (36-46) % MCV (80-100) fL MCH (26-34) PG MCHC (30-36) % RDW (11.6-14.8) % Plt Count (150-400) X10^3/uL Neut % (Auto) (50-75) % Lymph % (Auto) (25-40) % Dubois % (Auto) (3-14) % Eos % (Auto) (2-4) % Baso % (Auto) (0-2) % Neut # (Auto) (3000-7039) /uL Lymph # (Auto) (6019-7081) /uL Dubois # (Auto) (0-900) /uL Eos # (Auto) (0-450) /uL Baso # (Auto) (0-100) /uL PT (10.1-12.7) SECONDS INR (0.9-1.3) APTT (26-36) SECONDS D-Dimer (<500) ng/ml Sodium (137-145) mmol/L Potassium (3.4-5.1) mmol/L Chloride (98-107) mmol/L Carbon Dioxide (22-32) mmol/L BUN (7-17) mg/dL Creatinine (0.52-1.04) mg/dL Estimated GFR (>60) mL/min BUN/Creatinine Ratio (6-22) Glucose (70-100) mg/dL Calcium (8.4-10.2) mg/dL Magnesium (1.6-2.3) mg/dL Total Bilirubin (0.2-1.3) mg/dL AST (14-36) IU/L ALT (<35) IU/L Alkaline Phosphatase (38-126) U/L Total Creatine Kinase 64 (30-135) U/L CK-MB (CK-2) TNP CK-MB (CK-2) Rel Index TNP Troponin I < 0.012 (0.01-0.034) ng/mL Total Protein (6.3-8.2) g/dL Albumin (3.5-5.0) g/dL Globulin (1.7-4.1) g/dL Albumin/Globulin Ratio (1.0-2.8) Lipase (23-300) U/L MDM Narrative Medical decision making narrative: CC: 37-year-old female with calf pain as well as palpitations, chest pain, dizziness and blurred vision Complicating co-morbidities: Recent travel Data collected from: Patient Medical records reviewed: Prior notes reviewed in our EMR Differential considered, but not limited to: DVT, pulmonary embolism, electrolyte abnormality, overuse, injury, versus other Exam documented above, pertinent findings include: Minimal if any calf pain on palpation, no swelling, redness or warmth. No tachycardia or irregularity 2 heart rate, no increased work of breathing Lab Test results independently reviewed as above. Pertinent findings: No significant abnormal findings such as leukocytosis or anemia. D-dimer well below cutoff Independently reviewed EKG as above Imaging studies independently reviewed: Peripheral ultrasound negative for DVT Discussion: Patient presents with calf pain in the absence of any known injury though she does admit to walking on the beach and extensive amount. Exam is reassuring, history is reassuring an ultrasound shows no clot. Furthermore she has had episodes of palpitation, chest pain with associated dizziness and blurred vision. These symptoms tend to come together and come and go with a mind of their own but are always associated with 1 another raising the suspicion of a tachyarrhythmia. As noted EKG and monitoring here is unremarkable and labs show no significant findings such as electrolyte abnormality or elevated D- dimer. Patient without indication to suggest hospitalization is needed. She is encouraged to follow closely with her primary care provider and understands that she may need a groundwater monitoring technician Disposition: see below, along with detailed discharge instructions that have been reviewed with patient as well as indications for ED re-evaluation and additional outpatient follow up Discharge Plan Departure Patient Disposition: Home Clinical Impression: Pain of right calf Instructions: DI for Palpitations Activity Restrictions/Additional Instructions: *You have been diagnosed with [right calf pain and atypical chest pain, palpitations and episodic blurred vision. As we discussed there is no evidence of clot or deep vein thrombosis in your right leg per labs and imaging. Furthermore, the remainder of your labs, EKG are very reassuring and there is no evidence of heart attack, electrolyte abnormality or other] *What to do: *Please continue to take your regular medications as directed. [ ] New medication prescriptions sent to your pharmacy: [ ] [ ] New medication written as a paper prescription [x ] No new medications given *Please follow up with your primary care provider in 2-3 days, call for an appointment. Let them know you were seen in the Emergency Department and that we ask that you be seen in follow up. We will electronically transmit a record of today's note if your PCP is in our system *If you do not have a primary care provider please contact the [facility] Resource line at [phone]. They will ask some questions about your medical history and help get you set up with a doctor in the community. *Return to Emergency Department if you should have any new, worsening or concerning symptoms, such as [fever greater than 101 F, shaking chills, worsening pain, persistent vomiting or other bothersome symptoms] Referrals: Bety Robledo DNP, FLEET MECHANIC, COMPUTER PROCESSING SCHEDULER-C [Primary Care Provider] - Stand Alone Forms: Patient Portal/API
[2022-12-15 22:21] VITALS: BP 115/61; PULSE 72; RESP 18; O2SAT 98
== END 2022-12-15 22:22 | disposition home or self-care (01) ==
PROVIDERS: Emergency Provider Emergency Medicine; PCP Nurse Practitioner
DX: M79.604 Pain in right leg (principal); R07.9 Chest pain, unspecified; R00.2 Palpitations; R42 Dizziness and giddiness
CPT/HCPCS: 36415; 71045; 80053; 82550; 83690; 83735; 84484; 85025; 85379; 85610; 85730; 93005; 93010; 93971; 99283; 99284

== ENCOUNTER → 2023-01-18 10:27 | Outpatient (CLI) | payer OTHER, SELFPAY ==
--- NOTE | 2023-01-18 | DI.RAD.S_ITS ---
PROCEDURE: FL BARIUM SWALLOW INDICATIONS: Dysphagia, unspecified COMPARISON: [facility], CR, XR CHEST 1V, 12/15/2022, 19:14. [facility], US, US PERIPH VENOUS LOW EXTREM RT, 12/15/2022, 19:35. FINDINGS: Function: There is normal esophageal peristalsis. There is normal transit of a calibrated barium tablet through the esophagus into the stomach. Severe gastroesophageal reflux was elicited during the exam. Morphology: Air-contrast images demonstrate normal mucosal morphology. Single contrast views show no esophageal strictures, extrinsic mass effects, or diverticula. Limited images of the stomach demonstrate normal appearance. IMPRESSION: 1. Severe gastroesophageal reflux. Dictated by: Graeme Pichardo M.D. on 01/18/2023 at 12:34 Approved by: Graeme Pichardo M.D. on 01/18/2023 at 12:35
== END ==
PROVIDERS: PCP Nurse Practitioner; Referring Provider Nurse Practitioner Family; Visit Provider Nurse Practitioner Family
DX: R13.10 Dysphagia, unspecified (principal); K21.9 Gastro-esophageal reflux disease without esophagitis
CPT/HCPCS: 74220

== ENCOUNTER 2023-02-26 11:23 | Emergency (ER) | payer OTHER, SELFPAY ==
[2023-02-26 11:41] VITALS: BP 121/78; PULSE 76; RESP 16; TEMP 37; O2SAT 100; BMI 29.2
--- NOTE | 2023-02-26 11:51 | DI.RAD.S_ITS ---
PROCEDURE: XR CHEST 1V INDICATIONS: chest pain TECHNIQUE: One view of the chest was acquired. COMPARISON: [facility], CR, XR CHEST 1V, 12/15/2022, 19:14. FINDINGS: Surgical changes and devices: None. Lungs and pleura: Lungs are clear. No pleural effusions or pneumothorax. Mediastinum: Mediastinal contours appear normal. Heart size is normal. Bones and chest wall: No suspicious bony lesions. Overlying soft tissues appear unremarkable. IMPRESSION: No evidence acute pulmonary process. Dictated by: Chris Rodriguez M.D. on 02/26/2023 at 12:47 Approved by: Chris Rodriguez M.D. on 02/26/2023 at 12:47
[2023-02-26 12:09] LABS: Add Manual Diff / Slide Review NO; Basophils Absolute Auto 0 /uL (0-100); Basophils Percent Auto 0.5 % (0-2); Eosinophils Absolute Auto 100 /uL (0-450); Eosinophils Percent Auto 1.9 % (2-4); Hemoglobin 13.8 g/dL (12.0-16.0); Lymphocytes Absolute Auto 1200 /uL (1100-4500); Lymphocytes Percent Auto 21.7 % (25-40); Mean Corpuscular HGB Conc 33.7 % (30-36); Mean Corpuscular Hemoglobin 29.7 PG (26-34); Mean Corpuscular Volume 88.1 fL (80-100); Monocytes Absolute Auto 400 /uL (0-900); Monocytes Percent Auto 7.3 % (3-14); Neutrophils Absolute Auto 3800 /uL (1500-7000); Neutrophils Percent Auto 68.6 % (50-75); Platelet Count 200 X10^3/uL (150-400); Red Blood Cell Count 4.65 X10^6/uL (4.0-5.2); Red Cell Distribution Width 12.7 % (11.6-14.8); White Blood Cell Count 5.6 X10^3/uL (4.5-11.0)
--- NOTE | 2023-02-26 12:10 | ED_ITS ---
HPI - General Adult <Travis Porter PA-C - Last Filed: 02/26/23 14:51> General Chief complaint: Dizziness Stated complaint: heart pounding episodes,nausea,dizzy Time Seen by Provider: 02/26/23 12:09 History of Present Illness HPI narrative: 37-year-old female with past medical history GERD presents to the ED with 2 days of palpitations. Patient states she was awoken yesterday morning at 3:00 a.m with a rapidly pounding heartbeat, nausea, lightheadedness. Patient called EMS and was evaluated. Patient did not come into the ED at that time, however came in today since she continued to feel intermittent palpitations and felt generally unwell. Patient complains of some substernal pain, bilateral flank pain, left lower quadrant abdominal pain. Patient denies fever, chills, chest pain, shortness of breath, vomiting, dysuria, saddle paresthesias, numbness, tingling, weakness, dizziness, syncope. Patient had a barium swallow in January 2023, which showed severe GERD. Patient is scheduled for an EGD as well as a Holter monitor in April. Patient is on omeprazole daily for the GERD, however she stated that she had stopped taking it about 2-3 days prior to the start of her symptoms. Related Data Allergies Allergy/AdvReac Type Severity Reaction Status Date / Time lidocaine AdvReac Unconscious Verified 02/26/23 11:41 Review of Systems <Travis Porter PA-C - Last Filed: 02/26/23 14:51> Review of Systems ROS Unobtainable: All systems reviewed & are unremarkable except as noted in HPI and below Constitutional Constitutional: Denies chills, Denies fatigue, Denies fever(s), Denies frequent falls, Denies lethargy and Denies weakness Eyes Eyes: Denies change in vision, Denies eye discharge, Denies irritation and Denies loss of vision ENT Ears, Nose, Mouth, and Throat: Denies change in voice, Denies dizziness, Denies neck pain, Denies sore throat and Denies throat swelling Cardiovascular Cardiovascular: Denies chest pain, Denies irregular heart rhythm, Denies lightheadedness, Reports palpitations, Denies dyspnea, Denies dyspnea on exertion and Denies orthopnea Respiratory Respiratory: Denies cough, Denies dyspnea, Denies dyspnea on exertion and Denies wheezing Gastrointestinal Gastrointestinal: Reports abdominal pain, Denies change in bowel habits, Denies diarrhea, Denies nausea and Denies vomiting Genitourinary Genitourinary: Denies hematuria, Denies flank pain, Denies urinary incontinence and Denies urinary urgency Comments: Bilateral flank pain Musculoskeletal Musculoskeletal: Denies back pain, Denies muscle weakness, Denies neck pain, Denies numbness and Denies tingling Integumentary/Breasts Skin/Breast: Denies pruritus, Denies erythema, Denies rash and Denies wounds Neurologic Neurologic: Denies behavioral changes, Denies confusion, Denies dizziness, Denies frequent falls, Denies loss of vision, Denies numbness, Denies tingling and Denies weakness Psychiatric Psychiatric: Denies anxiety, Denies behavioral changes, Denies confusion, Denies depression, Denies homicidal ideation and Denies suicidal ideation Endocrine Endocrine: Denies fatigue, Denies flushing and Reports palpitations Hematologic/Lymphatic Hematologic/Lymphatic: Denies easy bruising Allergic/Immunologic Allergic/Immunologic: Denies urticaria, Denies throat swelling and Denies wheezing Patient History <Travis Porter PA-C - Last Filed: 02/26/23 14:51> Social History Smoking Status: Former smoker Smoking Status: Former smoker alcohol intake frequency: a few times a week Alcohol type: wine Substance Use Type: does not use Exam <Travis Porter PA-C - Last Filed: 02/26/23 14:51> Narrative Exam Narrative: Const General:?cooperative, healthy appearing and comfortable [facility] Head:?normal to inspection Ears:?hearing grossly normal bilaterally Nose:?external nose normal Face and sinus:?normal facial exam and sinuses nontender Mouth:?oral mucosae normal Throat:?posterior oropharynx normal Eyes General:?appearance normal, both eyes and all related structures Neck Neck:?normal visual inspection and no lymphadenopathy noted Resp Effort & Inspection:?normal respiratory effort Auscultation:?clear to auscultation bilaterally Cardio Rate:?regular rate Rhythm:?regular rhythm GI Abdomen is soft, nondistended, nontender to palpation. There is no CVA tenderness to palpation. Neuro General:?patient alert, patient awake and patient oriented x3 Initial Vital Signs Initial Vital Signs: Vital Signs Temperature 98.6 F 02/26/23 11:41 Pulse Rate 76 02/26/23 11:41 Respiratory Rate 16 02/26/23 11:41 Blood Pressure 121/78 02/26/23 11:41 Pulse Oximetry 100 02/26/23 11:41 Oxygen Delivery Method Room Air 02/26/23 11:41 <Julian Castillo DO - Last Filed: 03/01/23 09:54> Initial Vital Signs Initial Vital Signs: Vital Signs Temperature 98.6 F 02/26/23 11:41 Pulse Rate 76 02/26/23 11:41 Respiratory Rate 16 02/26/23 11:41 Blood Pressure 121/78 02/26/23 11:41 Pulse Oximetry 100 02/26/23 11:41 Oxygen Delivery Method Room Air 02/26/23 11:41 Course <Travis Porter PA-C - Last Filed: 02/26/23 14:51> Orders Ordered: Discontinued Medications Al Hydrox/Mg Hydrox/Simethicone (Mag Hydrox/Alum/Simeth 30 Ml Udc) 30 ml PO NOW ONE Stop: 02/26/23 12:46 Last Admin: 02/26/23 13:05 Dose: 30 ml Documented By: PAPITO Aspirin (Aspirin 81 Mg Chew Tab) 324 mg PO NOW ONE Stop: 02/26/23 11:52 Last Admin: 02/26/23 13:04 Dose: Not Given Documented By: PAPITO Famotidine (Famotidine 20 Mg Tablet) 40 mg PO NOW ONE Stop: 02/26/23 12:31 Last Admin: 02/26/23 13:05 Dose: 40 mg Documented By: PAPITO Vital Signs Vital signs: Vital Signs - 8 hr 02/26/23 11:41 02/26/23 12:15 02/26/23 12:16 Temperature 98.6 F Pulse Rate 76 83 82 Respiratory Rate 16 Blood Pressure 121/78 Pulse Oximetry 100 99 100 Oxygen Delivery Method Room Air 02/26/23 12:16 02/26/23 12:30 02/26/23 12:30 Temperature Pulse Rate 68 Respiratory Rate 15 Blood Pressure 136/70 120/55 L Pulse Oximetry 100 Oxygen Delivery Method 02/26/23 13:00 02/26/23 13:00 Temperature Pulse Rate 66 Respiratory Rate Blood Pressure 116/63 Pulse Oximetry 100 Oxygen Delivery Method <Julian Castillo DO - Last Filed: 03/01/23 09:54> Orders Ordered: Discontinued Medications Al Hydrox/Mg Hydrox/Simethicone (Mag Hydrox/Alum/Simeth 30 Ml Udc) 30 ml PO NOW ONE Stop: 02/26/23 12:46 Last Admin: 02/26/23 13:05 Dose: 30 ml Documented By: RB Aspirin (Aspirin 81 Mg Chew Tab) 324 mg PO NOW ONE Stop: 02/26/23 11:52 Last Admin: 02/26/23 13:04 Dose: Not Given Documented By: RB Famotidine (Famotidine 20 Mg Tablet) 40 mg PO NOW ONE Stop: 02/26/23 12:31 Last Admin: 02/26/23 13:05 Dose: 40 mg Documented By: RB Vital Signs Vital signs: Vital Signs - 8 hr 02/26/23 11:41 02/26/23 12:15 02/26/23 12:16 Temperature 98.6 F Pulse Rate 76 83 82 Respiratory Rate 16 Blood Pressure 121/78 Pulse Oximetry 100 99 100 Oxygen Delivery Method Room Air 02/26/23 12:16 02/26/23 12:30 02/26/23 12:30 Temperature Pulse Rate 68 Respiratory Rate 15 Blood Pressure 136/70 120/55 L Pulse Oximetry 100 Oxygen Delivery Method 02/26/23 13:00 02/26/23 13:00 Temperature Pulse Rate 66 Respiratory Rate Blood Pressure 116/63 Pulse Oximetry 100 Oxygen Delivery Method Medical Decision Making <Travis Porter PA-C - Last Filed: 02/26/23 14:51> Lab Data 02/26/23 12:00 02/26/23 12:00 Labs: Lab Results 02/26/23 02/26/23 02/26/23 Range/Units 11:59 12:00 12:00 WBC 5.6 (4.5-11.0) X10^3/uL RBC 4.65 (4.0-5.2) X10^6/uL Hgb 13.8 (12.0-16.0) g/dL Hct 41.0 (36-46) % MCV 88.1 (80-100) fL MCH 29.7 (26-34) PG MCHC 33.7 (30-36) % RDW 12.7 (11.6-14.8) % Plt Count 200 (150-400) X10^3/uL Neut % (Auto) 68.6 (50-75) % Lymph % (Auto) 21.7 L (25-40) % [place] % (Auto) 7.3 (3-14) % Eos % (Auto) 1.9 L (2-4) % Baso % (Auto) 0.5 (0-2) % Neut # (Auto) 3800 (0728-4258) /uL Lymph # (Auto) 1200 (3758-9782) /uL [place] # (Auto) 400 (0-900) /uL Eos # (Auto) 100 (0-450) /uL Baso # (Auto) 0 (0-100) /uL PT 12.3 (10.1-12.7) SECONDS INR 1.1 (0.9-1.3) APTT 34 (26-36) SECONDS Sodium (137-145) mmol/L Potassium (3.4-5.1) mmol/L Chloride (98-107) mmol/L Carbon Dioxide (22-32) mmol/L BUN (7-17) mg/dL Creatinine (0.52-1.04) mg/dL Estimated GFR (>60) mL/min BUN/Creatinine Ratio (6-22) Glucose (70-100) mg/dL Calcium (8.4-10.2) mg/dL Magnesium (1.6-2.3) mg/dL Total Bilirubin (0.2-1.3) mg/dL AST (14-36) IU/L ALT (<35) IU/L Alkaline Phosphatase (38-126) U/L Total Creatine Kinase (30-135) U/L CK-MB (CK-2) CK-MB (CK-2) Rel Index Troponin I (0.01-0.034) ng/mL Total Protein (6.3-8.2) g/dL Albumin (3.5-5.0) g/dL Globulin (1.7-4.1) g/dL Albumin/Globulin Ratio (1.0-2.8) Lipase (23-300) U/L TSH (0.47-4.68) uIU/mL SARS-CoV-2 (PCR) Negative (Negative) 02/26/23 02/26/23 02/26/23 Range/Units 12:00 12:00 14:00 WBC (4.5-11.0) X10^3/uL RBC (4.0-5.2) X10^6/uL Hgb (12.0-16.0) g/dL Hct (36-46) % MCV (80-100) fL MCH (26-34) PG MCHC (30-36) % RDW (11.6-14.8) % Plt Count (150-400) X10^3/uL Neut % (Auto) (50-75) % Lymph % (Auto) (25-40) % [place] % (Auto) (3-14) % Eos % (Auto) (2-4) % Baso % (Auto) (0-2) % Neut # (Auto) (4617-3930) /uL Lymph # (Auto) (3513-9990) /uL [place] # (Auto) (0-900) /uL Eos # (Auto) (0-450) /uL Baso # (Auto) (0-100) /uL PT (10.1-12.7) SECONDS INR (0.9-1.3) APTT (26-36) SECONDS Sodium 139 (137-145) mmol/L Potassium 3.6 (3.4-5.1) mmol/L Chloride 104 (98-107) mmol/L Carbon Dioxide 26 (22-32) mmol/L BUN 9 (7-17) mg/dL Creatinine 0.68 (0.52-1.04) mg/dL Estimated GFR > 60 (>60) mL/min BUN/Creatinine Ratio 13.2 (6-22) Glucose 99 (70-100) mg/dL Calcium 9.5 (8.4-10.2) mg/dL Magnesium 2.1 (1.6-2.3) mg/dL Total Bilirubin 0.8 (0.2-1.3) mg/dL AST 19 (14-36) IU/L ALT 22 (<35) IU/L Alkaline Phosphatase 51 (38-126) U/L Total Creatine Kinase 53 (30-135) U/L CK-MB (CK-2) TNP CK-MB (CK-2) Rel Index TNP Troponin I < 0.012 < 0.012 (0.01-0.034) ng/mL Total Protein 8.1 (6.3-8.2) g/dL Albumin 4.9 (3.5-5.0) g/dL Globulin 3.2 (1.7-4.1) g/dL Albumin/Globulin Ratio 1.5 (1.0-2.8) Lipase 45 (23-300) U/L TSH 2.07 (0.47-4.68) uIU/mL SARS-CoV-2 (PCR) (Negative) Point of Care Testing Test Results Negative Glucose POC 87 Urine Dip Bedside Urine Glucose Negative Bedside Urine Bilirubin - Negative Bedside Urine Ketone - Negative Urine Specific [place] 1.010 Bedside Urine Occult Blood - Negative Bedside Urine pH 7.0 Bedside Urine Protein - Negative Bedside Urine Urobilinogen 0.2 Bedside Urine Nitrite - Negative Bedside Urine Leukocytes - Negative Esterase Point of care testing: Point of Care Testing Test Results Negative Glucose POC 87 Urine Dip Bedside Urine Glucose Negative Bedside Urine Bilirubin - Negative Bedside Urine Ketone - Negative Urine Specific [place] 1.010 Bedside Urine Occult Blood - Negative Bedside Urine pH 7.0 Bedside Urine Protein - Negative Bedside Urine Urobilinogen 0.2 Bedside Urine Nitrite - Negative Bedside Urine Leukocytes - Negative Esterase MDM Narrative Medical decision making narrative: 37-year-old female with past medical history GERD presents to the ED with 2 days of palpitations. Concern for cardiac arrhythmias versus thyroid derangement versus GERD exacerbation versus UTI versus pyelonephritis versus other intra- abdominal pathology versus other. Physical exam is reassuring for a benign abdomen and no CVA tenderness. Will obtain labs, troponin, chest x-ray, TSH, UA. Will trial GI cocktail, Pepcid. Will reassess. EKGx2 is normal sinus rhythm without any acute ST-T changes. Chest x-ray without acute findings. Labs, urine, troponin x2 within normal limits. TSH within normal limits. Patient's symptoms significantly improved with Pepcid AC and Maalox. Patient's symptoms are likely due to an exacerbation of GERD, especially since patient has stopped taking the omeprazole a few days leading to onset of symptoms. Recommend patient resume omeprazole. Recommend trial of Pepcid AC twice daily for 14 days. Discussed various lifestyle modifications to manage GERD exacerbations. Recommend follow-up with PCP as soon as possible. ED return precautions were discussed with patient. Patient verbalized understanding. Medical records reviewed: Yes <Julian Castillo DO - Last Filed: 03/01/23 09:54> Lab Data Labs: Lab Results 02/26/23 02/26/23 02/26/23 Range/Units 11:59 12:00 12:00 WBC 5.6 (4.5-11.0) X10^3/uL RBC 4.65 (4.0-5.2) X10^6/uL Hgb 13.8 (12.0-16.0) g/dL Hct 41.0 (36-46) % MCV 88.1 (80-100) fL MCH 29.7 (26-34) PG MCHC 33.7 (30-36) % RDW 12.7 (11.6-14.8) % Plt Count 200 (150-400) X10^3/uL Neut % (Auto) 68.6 (50-75) % Lymph % (Auto) 21.7 L (25-40) % [place] % (Auto) 7.3 (3-14) % Eos % (Auto) 1.9 L (2-4) % Baso % (Auto) 0.5 (0-2) % Neut # (Auto) 3800 (6457-3271) /uL Lymph # (Auto) 1200 (3475-1410) /uL [place] # (Auto) 400 (0-900) /uL Eos # (Auto) 100 (0-450) /uL Baso # (Auto) 0 (0-100) /uL PT 12.3 (10.1-12.7) SECONDS INR 1.1 (0.9-1.3) APTT 34 (26-36) SECONDS Sodium (137-145) mmol/L Potassium (3.4-5.1) mmol/L Chloride (98-107) mmol/L Carbon Dioxide (22-32) mmol/L BUN (7-17) mg/dL Creatinine (0.52-1.04) mg/dL Estimated GFR (>60) mL/min BUN/Creatinine Ratio (6-22) Glucose (70-100) mg/dL Calcium (8.4-10.2) mg/dL Magnesium (1.6-2.3) mg/dL Total Bilirubin (0.2-1.3) mg/dL AST (14-36) IU/L ALT (<35) IU/L Alkaline Phosphatase (38-126) U/L Total Creatine Kinase (30-135) U/L CK-MB (CK-2) CK-MB (CK-2) Rel Index Troponin I (0.01-0.034) ng/mL Total Protein (6.3-8.2) g/dL Albumin (3.5-5.0) g/dL Globulin (1.7-4.1) g/dL Albumin/Globulin Ratio (1.0-2.8) Lipase (23-300) U/L TSH (0.47-4.68) uIU/mL SARS-CoV-2 (PCR) Negative (Negative) 02/26/23 02/26/23 02/26/23 Range/Units 12:00 12:00 14:00 WBC (4.5-11.0) X10^3/uL RBC (4.0-5.2) X10^6/uL Hgb (12.0-16.0) g/dL Hct (36-46) % MCV (80-100) fL MCH (26-34) PG MCHC (30-36) % RDW (11.6-14.8) % Plt Count (150-400) X10^3/uL Neut % (Auto) (50-75) % Lymph % (Auto) (25-40) % [place] % (Auto) (3-14) % Eos % (Auto) (2-4) % Baso % (Auto) (0-2) % Neut # (Auto) (1659-0072) /uL Lymph # (Auto) (3645-9962) /uL [place] # (Auto) (0-900) /uL Eos # (Auto) (0-450) /uL Baso # (Auto) (0-100) /uL PT (10.1-12.7) SECONDS INR (0.9-1.3) APTT (26-36) SECONDS Sodium 139 (137-145) mmol/L Potassium 3.6 (3.4-5.1) mmol/L Chloride 104 (98-107) mmol/L Carbon Dioxide 26 (22-32) mmol/L BUN 9 (7-17) mg/dL Creatinine 0.68 (0.52-1.04) mg/dL Estimated GFR > 60 (>60) mL/min BUN/Creatinine Ratio 13.2 (6-22) Glucose 99 (70-100) mg/dL Calcium 9.5 (8.4-10.2) mg/dL Magnesium 2.1 (1.6-2.3) mg/dL Total Bilirubin 0.8 (0.2-1.3) mg/dL AST 19 (14-36) IU/L ALT 22 (<35) IU/L Alkaline Phosphatase 51 (38-126) U/L Total Creatine Kinase 53 (30-135) U/L CK-MB (CK-2) TNP CK-MB (CK-2) Rel Index TNP Troponin I < 0.012 < 0.012 (0.01-0.034) ng/mL Total Protein 8.1 (6.3-8.2) g/dL Albumin 4.9 (3.5-5.0) g/dL Globulin 3.2 (1.7-4.1) g/dL Albumin/Globulin Ratio 1.5 (1.0-2.8) Lipase 45 (23-300) U/L TSH 2.07 (0.47-4.68) uIU/mL SARS-CoV-2 (PCR) (Negative) Point of Care Testing Test Results Negative Glucose POC 87 Urine Dip Bedside Urine Glucose Negative Bedside Urine Bilirubin - Negative Bedside Urine Ketone - Negative Urine Specific [place] 1.010 Bedside Urine Occult Blood - Negative Bedside Urine pH 7.0 Bedside Urine Protein - Negative Bedside Urine Urobilinogen 0.2 Bedside Urine Nitrite - Negative Bedside Urine Leukocytes - Negative Esterase Point of care testing: Point of Care Testing Test Results Negative Glucose POC 87 Urine Dip Bedside Urine Glucose Negative Bedside Urine Bilirubin - Negative Bedside Urine Ketone - Negative Urine Specific [place] 1.010 Bedside Urine Occult Blood - Negative Bedside Urine pH 7.0 Bedside Urine Protein - Negative Bedside Urine Urobilinogen 0.2 Bedside Urine Nitrite - Negative Bedside Urine Leukocytes - Negative Esterase Discharge Plan Departure Patient Disposition: Home Clinical Impression: Palpitations Instructions: DI for Gastroesophageal Reflux Disease (GERD), DI for Palpitations Activity Restrictions/Additional Instructions: You were evaluated in the ED today for palpitations, lightheadedness and nasuea. Your chest x-ray, labs, EKG, urine were all normal. It is likely that your symptoms are due to an exacerbation of the GERD, especially since you stopped the omeprazole a few days prior to your symptoms. Your symptoms greatly improved in the ED with Maalox and Pepcid AC. Please resume your omeprazole. Y ou may also take Pepcid AC twice daily for the next 2 weeks. Please follow-up with your PCP as soon as possible for further evaluation. Please return to the ED if you are persistently vomiting, you experience abdominal pain. Referrals: Provider,Dimitris RUBY [Primary Care Provider] - Stand Alone Forms: Patient Portal/API <Julian Castillo DO - Last Filed: 03/01/23 09:54> Cosign ED Attending Dayami Attestation: I was immediately available in the department for consultation. Documentation has been reviewed. I agree with assessment and plan.
[2023-02-26 12:14] LABS: INR 1.1 (0.9-1.3); Prothrombin Time 12.3 SECONDS (10.1-12.7)
[2023-02-26 12:15] VITALS: PULSE 83; O2SAT 99
[2023-02-26 12:16] VITALS: BP 136/70; PULSE 82; O2SAT 100
[2023-02-26 12:18] LABS: PTT Partial Thromboplastin Tim 34 SECONDS (26-36)
[2023-02-26 12:19] LABS: Alanine Aminotransferase 22 IU/L (<35); Albumin 4.9 g/dL (3.5-5.0); Albumin Globulin Ratio 1.5 (1.0-2.8); Alkaline Phosphatase 51 U/L (38-126); Aspartate Aminotransferase 19 IU/L (14-36); BUN Creatinine Ratio 13.2 (6-22); Bilirubin Total 0.8 mg/dL (0.2-1.3); Blood Urea Nitrogen 9 mg/dL (7-17); Calcium 9.5 mg/dL (8.4-10.2); Carbon Dioxide 26 mmol/L (22-32); Chloride 104 mmol/L (98-107); Creatine Kinase 53 U/L (30-135); Estimated Glomerular Filt Rate > 60 mL/min (>60); Globulin 3.2 g/dL (1.7-4.1); Glucose 99 mg/dL (70-100); HEMOLYSIS < 15 (0-50); Lipase 45 U/L (23-300); Magnesium 2.1 mg/dL (1.6-2.3); Potassium 3.6 mmol/L (3.4-5.1); Sodium 139 mmol/L (137-145); Total Protein 8.1 g/dL (6.3-8.2)
[2023-02-26 12:28] LABS: COVID19 -Nasal RAPID Negative (Negative)
[2023-02-26 12:30] VITALS: BP 120/55; PULSE 68; RESP 15; O2SAT 100
[2023-02-26 12:30] LABS: Troponin I < 0.012 ng/mL (0.01-0.034)
[2023-02-26 13:00] VITALS: BP 116/63; PULSE 66; O2SAT 100
[2023-02-26 13:05] LABS: Thyroid Stimulating Hormone 2.07 uIU/mL (0.47-4.68)
[2023-02-26] MEDS: FAMOTIDINE 20 MG TABLET 40 MG PO (13:05)
[2023-02-26] MEDS: MAG HYDROX/ALUM/SIMETH 30 ML UDC PO (13:05)
[2023-02-26 14:31] LABS: Troponin I < 0.012 ng/mL (0.01-0.034)
[2023-02-26 14:54] VITALS: BP 105/64; PULSE 67; RESP 16; O2SAT 100
== END 2023-02-26 15:09 | disposition home or self-care (01) ==
PROVIDERS: Emergency Medicine; Emergency Provider Student in an Organized Health Care Education/Training Program
DX: R00.2 Palpitations (principal); R42 Dizziness and giddiness; R11.0 Nausea; Z20.822 Contact with and (suspected) exposure to COVID-19
CPT/HCPCS: 36415; 71045; 80053; 81003; 81025; 82550; 83690; 83735; 84443; 84484; 85025; 85610; 85730; 87635; 93005; 93010; 99284; C9803; A9270